=== PATIENT | female | born 1995 | race African-American/Black ===

== ENCOUNTER 2018-01-31 21:00 | Emergency (ER) | payer OTHER ==
[2018-01-31] MEDS ORDERED: Morphine 2 MG/ML Syringe IVPUSH ONE (21:04)
[2018-01-31] MEDS ORDERED: Sodium Chloride 0.9% 1,000 ML IV ONE (21:04)
[2018-01-31] MEDS ORDERED: Diphtheria,Pertussis(Acell),Tetanus Vaccine 0.5 ML Syringe IM ONE (21:11)
[2018-01-31] MEDS ORDERED: Lidocaine 1% 50 ML MDV ONE (21:31)
[2018-01-31 21:36] LABS: CHLORIDE,CL 104 mmol/L (98-107); SODIUM,NA 141 mmol/L (136-145)
[2018-01-31] MEDS ORDERED: HYDROmorphone 1 MG/ML Syringe ONE (21:56)
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
--- NOTE | 2018-02-01 18:41 | CR ---
EXAM DATE: 01/31/18 PATIENT'S AGE: 22 Patient: VAL PURCELL Facility: [place], [place] Site . Site : 1995 Study: XRay Chest [id number]/14/2018 10:36:05 PM Ordering Physician: Mindy López Final Report: INDICATION: chest tube placement TECHNIQUE: Single view of the chest. COMPARISON: January 31, 2019. FINDINGS/IMPRESSION: Interval placement of a right-sided chest tube. The exact location is difficult to ascertain on this single projection. Consider repositioning. No residual right apical pneumothorax appreciated. The remainder of the lungs are stable. Stable subcutaneous emphysema along the right hemithorax. Stable displaced right 2nd rib fracture. Stable better appreciated right scapular fracture extending into the glenoid fossa. RESULTS CALLED TO DR. CHRISTENSEN AT 2320 HOURS ON JANUARY 31, 2018 Dictated by Matthew Griffin MD @ 01/31/2018 11:19:27 PM Dictated by: Matthew Griffin MD @ 01/31/2018 23:24:38 (Electronic Signature) Report Signed by Proxy. [facility]
== END 2018-01-31 22:30 | disposition other institution (70) ==
LOC: EDBD 21:00 → MW.ED 21:00
DX: S32.591A Other specified fracture of right pubis, initial encounter for closed fracture (principal); S72.92XA Unspecified fracture of left femur, initial encounter for closed fracture; J93.9 Pneumothorax, unspecified; V29.9XXA Motorcycle rider (driver) (passenger) injured in unspecified traffic accident, initial encounter
CPT/HCPCS: 32551; 71045; 72170; 73551; 80053; 82550; 82553; 84484; 85027; 85610; 86850; 86900; 86901; 90471; 90715; 96361; 96374; 96375; 99291; 99292; G0390; J1170; J2270; J7040

== ENCOUNTER 2018-02-24 06:32 | Emergency (ER) | payer SELFPAY ==
--- NOTE | 2018-02-24 07:29 | EDM.PDOC ---
ED HPI GENERAL MEDICAL PROBLEM - General Chief Complaint: Medication Administration Stated Complaint: NEEDS MEDICATION FOR PAIN Time Seen by Provider: 02/24/18 07:10 - History of Present Illness INITIAL COMMENTS - FREE TEXT/NARRATIVE: HISTORY AND PHYSICAL: History of present illness: The patient is a 22-year-old female who presents for medication refill of pain medicines. The patient was involved in a trauma involving a pelvic fracture on January 31 and was seen here and transferred to [facility] where she had surgery. The patient is presenting as she's run out of her pain medication and does not have an appointment until March 01. The appointment that she has is with Dr. Parth Yancey here locally and she has a follow-up with [facility] on March 14. The patient denies any issues with her wounds where her ex-fix is and has no fevers chills nausea vomiting or other systemic complaints. Mom is with her who is helping to take care of her and says that they are only here for pain medication as she has run out to bridge her to her next appointment. The pain is not new or different Review of systems: As per history of present illness and below otherwise all systems reviewed and negative. Past medical history: As per history of present illness and as reviewed below otherwise noncontributory. Surgical history: As per history of present illness and as reviewed below otherwise noncontributory. Social history: No reported history of drug or alcohol abuse. Family history: As per history of present illness and as reviewed below otherwise noncontributory. Physical exam: HEENT: Atraumatic, normocephalic, negative for conjunctival pallor or scleral icterus, mucous membranes moist, throat clear, neck supple, nontender, trachea midline. Lungs: Clear to auscultation, breath sounds equal bilaterally, chest nontender. Heart: S1S2, regular and rhythm no overt murmurs Abdomen: Soft, nondistended, nontender. NABS Pelvis: Stable external fixator is seen on the anterior aspect of the pelvis with clean wound sites. Genitourinary: Deferred. Rectal: Deferred. Extremities: Atraumatic, negative for cords or calf pain. Neurovascular unremarkable. Neuro: Awake, alert, oriented. Cranial nerves II through XII unremarkable. Cerebellum unremarkable. Motor and sensory unremarkable throughout. Exam nonfocal. Diagnostics: [] Therapeutics: [] I discussed with mom and the patient that I can only write for a couple of days of medications to get her to her appointment with Dr. Yancey. I asked them to contact him to try to move the appointment up. According to the patient's discharge medication she is on oxycodone 10 extended release 1 tablet every 12 hours as well as oxycodone 5 mg to take every 4 hours for breakthrough pain. Impression: Medication refill Definitive disposition and diagnosis as appropriate pending reevaluation and review of above. Pelvis Pain Score (Numeric/FACES): 10 - Related Data Allergies Allergy/AdvReac Type Severity Reaction Status Date / Time No Known Allergies Allergy Verified 02/24/18 06:51 Home Meds: Home Meds . [No Known Home Meds] 02/01/18 [History] Past Medical History - Past Health History Medical/Surgical History: Denies Medical/Surgical History Respiratory History: Reports: Asthma - Past Surgical History Head Surgeries/Procedures: Reports: None Cardiovascular Surgical History: Reports: None Respiratory Surgical History: Reports: None GI Surgical History: Reports: None Female Surgical History: Reports: None Neurological Surgical History: Reports: None Musculoskeletal Surgical History: Reports: Other (See Below) Other Musculoskeletal Surgeries/Procedures:: surgery for pelvic fixator, external; leg surgery Oncologic Surgical History: Reports: None Social & Family History - Family History Family Medical History: Noncontributory - Tobacco Use Smoking Status *Q: Never Smoker - Caffeine Use Caffeine Use: Reports: Coffee - Recreational Drug Use Recreational Drug Use: No ED ROS GENERAL - Review of Systems Review Of Systems: ROS reveals no pertinent complaints other than HPI. ED EXAM, GENERAL - Physical Exam Exam: See Below (See dictation) Course - Vital Signs Last Recorded V/S: Last Vital Signs Temp 36.9 C 02/24/18 06:46 Pulse 88 02/24/18 06:46 Resp 16 02/24/18 06:46 BP 137/93 H 02/24/18 06:46 Pulse Ox 98 02/24/18 06:46 Departure - Departure Time of Disposition: 07:28 Disposition: Home, Self-Care 01 Condition: Good Clinical Impression: Medication refill - Discharge Information Referrals: PCP,None [Primary Care Provider] - Additional Instructions: The following information is given to patients seen in the emergency department who are being discharged to home. This information is to outline your options for follow-up care. We provide all patients seen in our emergency department with a follow-up referral. The need for follow-up, as well as the timing and circumstances, are variable depending upon the specifics of your emergency department visit. If you don't have a primary care physician on staff, we will provide you with a referral. We always advise you to contact your personal physician following an emergency department visit to inform them of the circumstance of the visit and for follow-up with them and/or the need for any referrals to a consulting specialist. The emergency department will also refer you to a specialist when appropriate. This referral assures that you have the opportunity for followup care with a specialist. All of these measure are taken in an effort to provide you with optimal care, which includes your followup. Under all circumstances we always encourage you to contact your private physician who remains a resource for coordinating your care. When calling for followup care, please make the office aware that this follow-up is from your recent emergency room visit. If for any reason you are refused follow-up, please contact the [facility] emergency department at and ask to speak to the emergency department charge nurse. [facility] Primary care- Internal Medicine and Family [address] [place] [address] Please keep your scheduled appointment with Dr. Parth Renae on March 01 and call the clinic to see if you can move that appointment sooner. Use medications as needed and directed. Continue with your home care as previously and return to ER as needed and as discussed.
== END 2018-02-24 07:40 | disposition home or self-care (01) ==
LOC: MW.ED 06:32
DX: Z76.0 Encounter for issue of repeat prescription (principal)
CPT/HCPCS: 99282; 99283